=== PATIENT | female | born 2000 | race Hispanic/Latino ===

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

== ENCOUNTER 2021-07-27 12:51 | Emergency (ER) | payer OTHER ==
[~2021-07-27] VITALS: Ht 160 cm; Wt 59.0 kg
[2021-07-27 12:52] VITALS: BP 122/65
[2021-07-27 13:21] LABS: BASOPHILS % (AUTO) 0.8 % (0.0-5.0); EOSINOPHILS % (AUTO) 2.4 % (0.0-8.0); HEMATOCRIT 32.5 % (36-48); LYMPHOCYTES % (AUTO) 33.4 % (21.0-51.0); MEAN CORPUSCULAR HEMOGLOBIN 20.9 pg (27.0-33.0); MEAN CORPUSCULAR HGB CONC 29.5 g/dL (32.0-36.0); MEAN CORPUSCULAR VOLUME 70.8 fL (80-100); NEUTROPHILS % (AUTO) 56.1 % (40.0-77.0); PLATELET COUNT (AUTO) 322 K/uL (130-400); RED BLOOD CELL COUNT(AUTO) 4.59 MIL/uL (4.00-5.50); RED CELL DISTRIBUTION WIDTH 16.9 % (11.0-15.5); WHITE BLOOD COUNT (AUTO) 7.1 K/uL (4.8-10.8)
[2021-07-27 13:28] LABS: CREATININE 0.8 mg/dL (0.5-1.5); POTASSIUM 3.8 mmol/L (3.5-5.1)
[2021-07-27 13:32] LABS: BILIRUBIN,TOTAL 0.5 mg/dL (0.2-1.0)
[2021-07-27 13:34] LABS: APPEARANCE,URINE Turbid (CLEAR); BILIRUBIN,URINE Negative (NEGATIVE); COLOR,URINE Yellow (YELLOW); GLUCOSE, URINE (UA) Negative (NEGATIVE); KETONES,URINE Negative (NEGATIVE); LEUKOCYTE ESTERASE ,URINE Small (NEGATIVE); NITRATE,URINE Negative (NEGATIVE); OCCULT BLOOD,URINE Negative (NEGATIVE); PH,URINE 8.5 (5.0-8.0); PROTEIN,URINE Trace mg/dL (NEGATIVE)
[2021-07-27 13:36] LABS: HCG,QUAL RESULT NEGATIVE (NEGATIVE)
[2021-07-27 13:38] LABS: BACTERIA,URINE Few /HPF (None Seen); RBC,URINE 0-1 /HPF (0-1); SQUAMOUS EPITHELIAL CELL,UR Moderate /HPF (0-2)
[2021-07-27 13:39] LABS: AMORPHOUS SEDIMENT,UR Few /LPF (None Seen)
[2021-07-27] MEDS ORDERED: MAG/ALUM/SIMETH 30 ML UDCUP PO ONE (14:00)
[2021-07-27] MEDS ORDERED: LIDOCAINE HCL 2% VISCOUS 15 ML UDCUP PO ONE (14:00)
[2021-07-27] MEDS ORDERED: FAMOTIDINE 20MG VIAL IV ONE (14:00)
[2021-07-27] MEDS ORDERED: CEFTRIAXONE 1G VIAL IVP ONE (14:00)
[2021-07-27] MEDS ORDERED: [UNRECOGNIZED DRUG - CODE] PO (14:03)
[2021-07-27] MEDS ORDERED: PHEN-847 PO (14:03)
[2021-07-27] MEDS ORDERED: FAMO-136 PO (14:03)
[2021-07-27] MEDS ORDERED: CEPH500B PO (14:03)
[2021-07-27] MEDS ORDERED: PHENAZOPYRIDINE HCL 200 MG TABLET PO ONE (14:30)
== END 2021-07-27 14:32 | disposition home or self-care (01) ==
LOC: EDH 12:51
DX: K29.70 Gastritis, unspecified, without bleeding (principal); D64.9 Anemia, unspecified; N39.0 Urinary tract infection, site not specified; Z79.899 Other long term (current) drug therapy
CPT/HCPCS: 36415; 80053; 81001; 81025; 83690; 85025; 96374; 96375; 99284; J0696; J3490

== ENCOUNTER 2022-06-02 08:41 | Emergency (ER) | payer OTHER ==
[~2022-06-02] VITALS: Ht 160 cm; Wt 65.8 kg
[~2022-06-02 08:41] MED LIST: CEPH500B PO; FAMO-136 PO; PHEN-847 PO; [UNRECOGNIZED DRUG - CODE] PO
[2022-06-02 09:09] LABS: BASOPHILS % (AUTO) 0.7 % (0.0-5.0); HEMATOCRIT 36.3 % (36-48); LYMPHOCYTES % (AUTO) 33.6 % (21.0-51.0); MEAN CORPUSCULAR HEMOGLOBIN 23.9 pg (27.0-33.0); MEAN CORPUSCULAR VOLUME 74.7 fL (80-100); MONOCYTES % (AUTO) 7.7 % (3.0-13.0); NEUTROPHILS % (AUTO) 55.8 % (40.0-77.0); PLATELET COUNT (AUTO) 248 K/uL (130-400); RED BLOOD CELL COUNT(AUTO) 4.86 MIL/uL (4.00-5.50); RED CELL DISTRIBUTION WIDTH 18.6 % (11.0-15.5)
[2022-06-02 09:11] LABS: HCG,QUALITATIVE URINE POSITIVE (NEGATIVE)
[2022-06-02 09:14] LABS: APPEARANCE,URINE CLEAR (CLEAR); BILIRUBIN,URINE NEGATIVE (NEGATIVE); COLOR,URINE YELLOW (YELLOW); GLUCOSE, URINE (UA) NEGATIVE (NEGATIVE); KETONES,URINE NEGATIVE (NEGATIVE); LEUKOCYTE ESTERASE ,URINE NEGATIVE (NEGATIVE); NITRATE,URINE NEGATIVE (NEGATIVE); OCCULT BLOOD,URINE NEGATIVE (NEGATIVE); PH,URINE 6.5 (5.0-8.0); PROTEIN,URINE NEGATIVE (NEGATIVE); UROBILINOGEN,URINE 0.2 mg/dL (0.2-1.0)
[2022-06-02 09:23] LABS: ALBUMIN 4.1 g/dL (3.5-5.0); CREATININE 0.6 mg/dL (0.5-1.5); POTASSIUM 3.7 mmol/L (3.5-5.1)
[2022-06-02] MEDS ORDERED: ACETAMINOPHEN 325 MG TAB PO ONE (10:30)
[2022-06-02 12:11] VITALS: BP 118/68
[2022-06-02] MEDS ORDERED: PREN1CAP35 PO (12:28)
== END 2022-06-02 12:39 | disposition home or self-care (01) ==
LOC: EDH 08:41
DX: O26.891 Other specified pregnancy related conditions, first trimester (principal); R10.2 Pelvic and perineal pain; Z3A.01 Less than 8 weeks gestation of pregnancy
CPT/HCPCS: 36415; 76801; 80053; 81003; 81025; 83690; 84702; 85025

== ENCOUNTER 2022-10-07 20:20 | Observation (INO) | payer MEDICAID ==
[~2022-10-07] VITALS: Ht 157.5 cm; Wt 75.8 kg
[~2022-10-07 20:20] MED LIST changes: +PREN1CAP35 PO
[2022-10-07 20:35] VITALS: BP 144/72
[2022-10-07 20:57] LABS: APPEARANCE,URINE CLOUDY (CLEAR); BILIRUBIN,URINE NEGATIVE (NEGATIVE); COLOR,URINE LIGHT-YELLOW (YELLOW); GLUCOSE, URINE (UA) NEGATIVE (NEGATIVE); KETONES,URINE NEGATIVE (NEGATIVE); LEUKOCYTE ESTERASE ,URINE 500 Leu/uL (NEGATIVE); NITRATE,URINE NEGATIVE (NEGATIVE); OCCULT BLOOD,URINE NEGATIVE (NEGATIVE); PH,URINE 7.5 (5.0-8.0); PROTEIN,URINE NEGATIVE (NEGATIVE); UROBILINOGEN,URINE 0.2 mg/dL (0.2-1.0)
[2022-10-07 21:01] LABS: BACTERIA,URINE RARE /HPF (None Seen); MUCUS,URINE RARE LPF (None Seen); OTHER CASTS, URINE 4 /LPF (None Seen); SQUAMOUS EPITHELIAL CELL,UR MOD /HPF (0-2); WBC,URINE 26-50 /HPF (0-1)
[2022-10-07] MEDS ORDERED: ACETAMINOPHEN 500 MG TABLET PO ONE (22:30)
== END 2022-10-07 22:52 | disposition home or self-care (01) ==
LOC: EDH 20:20 → LDH 20:21
PROVIDERS: ADMIT Obstetrics & Gynecology; ATTEND Obstetrics & Gynecology
DX: O62.9 Abnormality of forces of labor, unspecified (principal); Z3A.25 25 weeks gestation of pregnancy
CPT/HCPCS: 87088; 81001; G0378 ×3; G0379

== ENCOUNTER 2022-12-26 23:21 | Observation (INO) | payer MEDICAID ==
[~2022-12-26] VITALS: Ht 157.5 cm; Wt 85.0 kg
[2022-12-26 23:25] VITALS: BP 147/80
[2022-12-27 00:01] LABS: APPEARANCE,URINE CLOUDY (CLEAR); BILIRUBIN,URINE NEGATIVE (NEGATIVE); COLOR,URINE YELLOW (YELLOW); GLUCOSE, URINE (UA) NEGATIVE (NEGATIVE); KETONES,URINE NEGATIVE (NEGATIVE); LEUKOCYTE ESTERASE ,URINE 500 Leu/uL (NEGATIVE); NITRATE,URINE NEGATIVE (NEGATIVE); OCCULT BLOOD,URINE NEGATIVE (NEGATIVE); PROTEIN,URINE 70 mg/dL (NEGATIVE); UROBILINOGEN,URINE 0.2 mg/dL (0.2-1.0)
[2022-12-27 00:04] LABS: AMPHET/METH SCREEN,URINE NEGATIVE (NEGATIVE); BARBITURATE SCREEN, URINE NEGATIVE (NEGATIVE); BENZODIAZEPINES SCREEN,URINE NEGATIVE (NEGATIVE); CANNABINOID SCREEN,URINE NEGATIVE (NEGATIVE); COCAINE SCREEN,URINE NEGATIVE (NEGATIVE); MUCUS,URINE RARE LPF (None Seen); OPIATE SCREEN,URINE NEGATIVE (NEGATIVE); PHENCYCLIDINE SCREEN,URINE NEGATIVE (NEGATIVE); SQUAMOUS EPITHELIAL CELL,UR MANY /HPF (0-2); WBC,URINE 51-100 /HPF (0-1)
== END 2022-12-27 00:50 | disposition home or self-care (01) ==
LOC: EDH 23:21 → LDH 23:22
PROVIDERS: ADMIT Obstetrics & Gynecology; ATTEND Obstetrics & Gynecology
DX: O26.893 Other specified pregnancy related conditions, third trimester (principal); R10.30 Lower abdominal pain, unspecified; O99.891 Other specified diseases and conditions complicating pregnancy; M54.9 Dorsalgia, unspecified; Z3A.35 35 weeks gestation of pregnancy
CPT/HCPCS: 80305; 87088; 81001; G0379; G0378

== ENCOUNTER 2023-01-30 08:53 | Observation (INO) | payer MEDICAID ==
[~2023-01-30] VITALS: Ht 157.5 cm; Wt 86.6 kg
[2023-01-30 08:57] VITALS: BP 148/85
[2023-01-30 09:49] LABS: APPEARANCE,URINE CLEAR (CLEAR); BILIRUBIN,URINE NEGATIVE (NEGATIVE); COLOR,URINE LIGHT-YELLOW (YELLOW); GLUCOSE, URINE (UA) NEGATIVE (NEGATIVE); KETONES,URINE NEGATIVE (NEGATIVE); LEUKOCYTE ESTERASE ,URINE 500 Leu/uL (NEGATIVE); NITRATE,URINE NEGATIVE (NEGATIVE); OCCULT BLOOD,URINE NEGATIVE (NEGATIVE); PROTEIN,URINE NEGATIVE (NEGATIVE); UROBILINOGEN,URINE 0.2 mg/dL (0.2-1.0)
[2023-01-30 10:02] LABS: BACTERIA,URINE RARE /HPF (None Seen); OTHER CASTS, URINE 1 /LPF (None Seen); RBC,URINE 0-1 /HPF (0-1); SQUAMOUS EPITHELIAL CELL,UR FEW /HPF (0-2)
[2023-02-01] MEDS ORDERED: IBUP-2088 PO (10:43)
== END 2023-01-30 11:15 | disposition home or self-care (01) ==
LOC: EDH 08:53 → LDH 08:54
PROVIDERS: ADMIT Obstetrics & Gynecology; ATTEND Obstetrics & Gynecology
DX: O62.9 Abnormality of forces of labor, unspecified (principal); Z3A.40 40 weeks gestation of pregnancy
CPT/HCPCS: 87088; 81001; G0378 ×2; G0379

== ENCOUNTER 2023-02-01 16:57 | Emergency (ER) | payer MEDICAID ==
[~2023-02-01 16:57] MED LIST changes: +IBUP-2088 PO
== END 2023-02-01 18:00 | disposition left against medical advice (07) ==
LOC: EDH 16:57
DX: Z53.21 Procedure and treatment not carried out due to patient leaving prior to being seen by health care provider (principal)

== ENCOUNTER 2023-02-21 17:12 | Emergency (ER) | payer MEDICAID ==
[~2023-02-21] VITALS: Ht 157.5 cm; Wt 75.7 kg
[~2023-02-21 17:12] MED LIST changes: -CEPH500B PO; -FAMO-136 PO; -PHEN-847 PO; -[UNRECOGNIZED DRUG - CODE] PO
[2023-02-21] MEDS ORDERED: ONDANSETRON 4MG INJ IVP ONE (18:30)
[2023-02-21] MEDS ORDERED: 0.9%NACL 1000ML 1,000 ML IV ONE (18:30)
[2023-02-21] MEDS ORDERED: MORPHINE 4 MG SYG IVP ONE (18:30)
[2023-02-21 18:54] LABS: BASOPHILS % (AUTO) 0.7 % (0.0-5.0); EOSINOPHILS % (AUTO) 2.4 % (0.0-8.0); LYMPHOCYTES % (AUTO) 29.8 % (21.0-51.0); MEAN CORPUSCULAR HEMOGLOBIN 22.5 pg (27.0-33.0); MEAN CORPUSCULAR HGB CONC 28.9 g/dL (32.0-36.0); MEAN CORPUSCULAR VOLUME 78.1 fL (80-100); MONOCYTES % (AUTO) 8.8 % (3.0-13.0); NEUTROPHILS % (AUTO) 58.1 % (40.0-77.0); PLATELET COUNT (AUTO) 279 K/uL (130-400); RED BLOOD CELL COUNT(AUTO) 4.48 MIL/uL (4.00-5.50); WHITE BLOOD COUNT (AUTO) 5.8 K/uL (4.8-10.8)
[2023-02-21 19:03] LABS: CREATININE 0.8 mg/dL (0.5-1.5); POTASSIUM 3.8 mmol/L (3.5-5.1)
[2023-02-21 19:14] LABS: ALBUMIN 3.7 g/dL (3.5-5.0); TOTAL PROTEIN, SERUM 7.7 g/dL (6.0-8.3)
[2023-02-21 19:42] LABS: APPEARANCE,URINE CLOUDY (CLEAR); BILIRUBIN,URINE NEGATIVE (NEGATIVE); COLOR,URINE YELLOW (YELLOW); GLUCOSE, URINE (UA) NEGATIVE (NEGATIVE); KETONES,URINE NEGATIVE (NEGATIVE); LEUKOCYTE ESTERASE ,URINE 250 Leu/uL (NEGATIVE); NITRATE,URINE NEGATIVE (NEGATIVE); OCCULT BLOOD,URINE NEGATIVE (NEGATIVE); PH,URINE 8.5 (5.0-8.0); PROTEIN,URINE 200 mg/dL (NEGATIVE); UROBILINOGEN,URINE 6 mg/dL (0.2-1.0)
[2023-02-21 19:45] LABS: HCG,QUALITATIVE URINE NEGATIVE (NEGATIVE)
[2023-02-21 19:56] LABS: BACTERIA,URINE FEW /HPF (None Seen); MUCUS,URINE RARE LPF (None Seen); SQUAMOUS EPITHELIAL CELL,UR FEW /HPF (0-2); WBC,URINE 51-100 /HPF (0-1); YEAST,URINE BUDDING FEW /HPF (None Seen)
[2023-02-21] MEDS ORDERED: CEPH500B PO (20:08)
[2023-02-21] MEDS ORDERED: AMOX1TAB16 PO (20:10)
[2023-02-21 20:15] VITALS: BP 115/78
== END 2023-02-21 20:32 | disposition home or self-care (01) ==
LOC: EDH 17:51
DX: K80.20 Calculus of gallbladder without cholecystitis without obstruction (principal); N39.0 Urinary tract infection, site not specified; R10.13 Epigastric pain; D64.9 Anemia, unspecified; R74.8 Abnormal levels of other serum enzymes; Z79.899 Other long term (current) drug therapy
CPT/HCPCS: 99285; 96374; 76705; 96361; 96375; 84484; 80053; 83690; 85025; 87088; 81001; 81025; 36415; 93005; J7030; J2405; J2270

== ENCOUNTER 2024-11-28 09:35 | Emergency (ER) | payer SELFPAY ==
[~2024-11-28] VITALS: Ht 157.5 cm; Wt 68.9 kg
[~2024-11-28 09:35] MED LIST changes: +AMOX1TAB16 PO; +CEPH500B PO
[2024-11-28 09:48] VITALS: TEMP 101.5
[2024-11-28] MEDS: acetaMINOPHEN 500 MG TABLET PO ONE (09:48)
[2024-11-28 10:42] LABS: RAPID GROUP A STREP negative (NEGATIVE)
[2024-11-28 10:49] LABS: SARS-CoV-2, RNA, NAAT NEGATIVE SARS CoV-2 (NEGATIVE)
[2024-11-28 10:52] LABS: INFLUENZA TYPE B Negative For Type B (NEGATIVE)
[2024-11-28 10:59] LABS: INFLUENZA TYPE A Positive For Type A (NEGATIVE)
--- NOTE | 2024-11-28 10:59 | NUR ---
FLUA+ ERMD MADE AWARE
[2024-11-28] MEDS ORDERED: AZIT250T9 PO (11:08)
[2024-11-28] MEDS ORDERED: METH4TAB3 PO (11:08)
--- NOTE | 2024-11-28 11:09 | ERN ---
General Chief Complaint: Fever Stated Complaint: FEVER Time Seen by MD: 10:02 Time Seen by Midlevel: 10:02 Source: patient History of Present Illness Initial Comments Patient is a 23-year-old female with a past medical history of asthma presenting to the emergency department with flu-like symptoms that started last night. Symptoms consist of chills, fever, and a dry cough. Denies any sick contacts. Denies any other symptoms at this time. Allergies: Coded Allergies: No Known Allergies (Unverified Allergy, Unknown, 07/27/21) Home Meds Active Scripts Methylprednisolone (Medrol) 4 Mg Tab.ds.pk, 1 TAB PO AD for 6 Days, #21 TAB 0 Refills 6 on day 1 then reduce by one tablet daily until gone Prov:EHSAN MONTOYA 11/28/24 Azithromycin (Azithromycin) 250 Mg Tablet, 1 TAB PO AD for 5 Days, #6 TAB 0 Refills 2 the first day followed by 1 for days 2-5 Prov:ESHAN MONTOYA 11/28/24 Amoxicillin/Potassium Clav (Amox Tr-K Clv 875-125 mg Tab) 1 Each Tablet, 1 EACH PO BID for 7 Days, #14 TAB Prov:ZHENG ORNELAS V ONLINE COMMUNICATIONS SPECIALIST 02/21/23 Cephalexin Monohydrate (Keflex) 500 Mg Cap, 500 MG PO QID for 7 Days, #28 CAP Prov:ZHENG ORNELAS V ONLINE COMMUNICATIONS SPECIALIST 02/21/23 148/Iron/Folate 6/Dha (Tendera-Ob Softgel) 1 Each Capsule, 1 EACH PO DAILY, #30 CAP 0 Refills Prov:DANIELLA GONZALEZ MD 06/02/22 Reported Medications Ibuprofen (Motrin/Advil) 600 Mg Tab, 600 MG PO Q6H PRN for PAIN LEVEL 2 TO 5, #30 TAB 02/01/23 Past Medical History Past Medical History: Asthma Past Surgical History: None Social History Social History: Negative Female( History) LMP: Nov 03, 2024 : 1 Para: 0 Aborts: 0 ROS Dictation CONSTITUTIONAL: Negative except for HPI HEAD/FACE: Negative except for HPI EENT: Negative except for HPI RESPIRATORY: Negative except for HPI GASTROINTESTINAL/ABDOMINAL: Negative except for HPI GENITOURINARY: Negative except for HPI MUSCULOSKELETAL: Negative except for HPI INTEGUMENTARY: Negative except for HPI NEUROLOGICAL/PSYCH: Negative except for HPI HEMATOLOGIC/LYMPHATIC: Negative except for HPI All Systems Negative, Except as noted above. 13 point review of systems assessed and all negative except for above. Physical Exam Physical Exam Dictation Vital Signs reviewed General Appearance: Alert, oriented x 3, no acute distress, well developed, nourished. Head and Face: non-traumatic. Eyes: PERRL, pink conjunctivas, eyelid no trauma, anterior chamber with arcus senilis. Ears: Pinnas intact and no signs of trauma or erythema ear canals clear and no discharge TM no erythema Nose: No discharge, no bleeding. Oropharynx: Mouth normal, tongue pink, pharynx clear,no erythema, tonsils no exudates, no abscesses noted, mucous membrane moist Neck: Supple, non-tender, no thyromegaly, no masses, no JVD, no bruits Breast:Deferred Chest:No tenderness, no crepitus, no paradoxical movement, no retractions Lungs:Clear, well-ventilated, symmetric, no rales, no wheezing, no rhonchi, no stridor, good breath sounds bilaterally Heart: Regular rate, regular rhythm, no murmur, no gallops Vascular: no peripheral edema, Abdomen: Soft, positive bowel sounds, nondistended, no guarding, nontender, no rebound, no masses no hepatomegaly, no splenomegaly, no Louie's sign, no hernias. Rectal: Deferred Genital: Deferred Neurological: Normal speech, motor function intact, sensory function intact Musculoskeletal: Neck nontender, full range of motion, back nontender, full range of motion, Extremities: nontender, full range of motion Skin: Color pink, dry, no turgor, no rash, no lacerations, no abrasions, no c ontusions. Lymphatic: Deferred Results Laboratory and Microbiology Lab and Micro Result Laboratory Tests Test 11/28/24 09:44 Influenza Type A Antigen Positive For Type A Influenza Type B Antigen Negative For Type B SARS-CoV-2, RNA, NAAT NEGATIVE SARS CoV-2 Group A Streptococcus Rapid negative (NEGATIVE) Labs Reviewed?: Yes MDM MDM: 23-year-old female with a past medical history of asthma presenting to the ER for evaluation of flu-like symptoms that started last night. On physical examination the patient is in no acute respiratory distress. Patient was febrile and tachycardic on arrival. Respiratory swabs are remarkable for influenza A. The patient was given Tylenol in the emergency department. Patient refused Tamiflu prescription. She will be given a prescription for azithromycin to prevent an ammonia given her history of asthma. Patient will also be sent home with a prescription for Medrol pack for outpatient management. She was advised to follow up with primary care doctor in 2-3 days for repeat evaluation or return to the ER for any new or worsening symptoms Differential diagnosis: Viral syndrome, upper respiratory infection, strep There are no social concerns with this patient. Prescription drug management Prescriptions will include: Azithromycin and Medrol pack Medical management and examination interpretation discussions were had by me with other qualified healthcare professionals as indicated for the patient's care. ED Course Orders Procedure Category Date Status Time Covid Rna Naat LAB 11/28/24 Complete 09:40 Influenza Type A & B, LAB 11/28/24 Complete Rapid 09:40 Rapid (Group A Strep) LAB 11/28/24 Complete 09:40 Acetaminophen 500mg PHA 11/28/24 Complete Tab (Tylenol 500mg T 10:00 *Nursing CPOE 11/28/24 Transmitted Communication: 11:08 Current Medications Medications (Trade) Dose Ordered Sig/Shannan Route PRN Reason Start Time Stop Time Status Last Admin Dose Admin Acetaminophen (TYLenol 500MG TAB) 1,000 mg ONCE ONCE PO 11/28/24 10:00 11/28/24 10:01 DC 11/28/24 09:48 Vital Signs Date Time Temp Pulse Resp B/P (MAP) Pulse Ox O2 Delivery O2 Flow Rate FiO2 11/28/24 11:12 99.9 92 20 122/70 98 Room Air* 0 21 11/28/24 09:48 101.5 11/28/24 09:37 101.5 103 20 128/75 99 0 DX & DISP Disposition: Discharge Departure Impression: Primary Impression: Influenza A Additional Impression: History of asthma Condition: Stable Scripts Methylprednisolone (Medrol) 4 Mg Tab.ds.pk 1 TAB PO AD for 6 Days, #21 TAB 0 Refills 6 on day 1 then reduce by one tablet daily until gone Prov: EHSAN MONTOYA 11/28/24 Azithromycin (Azithromycin) 250 Mg Tablet 1 TAB PO AD for 5 Days, #6 TAB 0 Refills 2 the first day followed by 1 for days 2-5 Prov: EHSAN MONTOYA 11/28/24 Additional Instructions: You have tested positive for influenza A. I have started you on several medications which should help improve your symptoms over the next couple of days Referrals: SELF,REFERRAL (PCP) Time of Disposition: 11:07 I have reviewed the case, and I agree with, Diagnosis and Plan I performed the substantive portion of the visit. I have reviewed and personally made and approve the management plan that is documented in the note by myself or the LISE. I acknowledge for responsibility for the patient's management plan. EHSAN MONTOYA Nov 28, 2024 11:09 ARIE MYERS DO Nov 29, 2024 07:39
[2024-11-28 11:12] VITALS: BP 122/70; PULSE 92; RESP 20; TEMP 99.9; O2SAT 98
== END 2024-11-28 11:36 | disposition home or self-care (01) ==
LOC: EDH 09:35
DX: J10.1 Influenza due to other identified influenza virus with other respiratory manifestations (principal); J45.909 Unspecified asthma, uncomplicated; Z20.822 Contact with and (suspected) exposure to COVID-19
CPT/HCPCS: 87635; 87804; 87880; 99283